=== PATIENT | male | born 1990 | race Caucasian/White ===

== ENCOUNTER → 2022-09-26 15:53 | Outpatient (BNVA) | payer MEDICAID, SELFPAY | PROVIDERS: Visit Provider Registered Nurse Neonatal Intensive Care | DX: R50.9 Fever, unspecified (principal); B34.9 Viral infection, unspecified | CPT/HCPCS: 87400 ==

== ENCOUNTER → 2024-06-08 14:50 | Outpatient (BNVA) | payer SELFPAY | PROVIDERS: PCP Family Medicine; Visit Provider Internal Medicine | DX: E10.9 Type 1 diabetes mellitus without complications (principal) | CPT/HCPCS: 36415; 80053; 80061; 82044; 83036 ==

== ENCOUNTER → 2024-09-27 11:45 | Outpatient (BNVA) | payer MEDICAID, SELFPAY | PROVIDERS: PCP Family Medicine; Visit Provider Internal Medicine | DX: E10.9 Type 1 diabetes mellitus without complications (principal); E78.2 Mixed hyperlipidemia; J18.9 Pneumonia, unspecified organism | CPT/HCPCS: 36415; 80053; 80061; 82044; 83036; 84681; 86337; 86341 ==

== ENCOUNTER 2024-12-22 16:22 | Outpatient (CLI) | payer SELFPAY ==
[2024-12-22 18:57] LABS: Estmated Average Glucose 252; Hemoglobin A1C 10.4 % (4.0-6.0)
[2024-12-22 19:14] LABS: Creatinine Urine, Random 57 mg/dL (39-259); Microalbum Creatinine Ratio Ur 18 mg/dL (0-20); Microalbumin Random Urine 1 ug/dL (0-20)
[2024-12-22 19:14] LABS: Chol HDL Ratio 2.59 mg/dL (1.0-5.00); Cholesterol 153 mg/dL (0-200); HDL Cholesterol 59 mg/dL (60-100); LDL Cholesterol Calculated 84 mg/dL (50-129); LDL HDL Ratio 1.42 RATIO (0.00-3.22); Triglycerides 50 mg/dL (0-150)
== END 2024-12-22 16:23 | disposition home or self-care (01) ==
PROVIDERS: PCP Family Medicine; Visit Provider Internal Medicine
DX: E10.9 Type 1 diabetes mellitus without complications (principal); E78.2 Mixed hyperlipidemia
CPT/HCPCS: 80061; 82044; 83036

== ENCOUNTER → 2025-04-16 11:40 | Outpatient (BNVA) | payer SELFPAY | PROVIDERS: PCP Family Medicine; Visit Provider Internal Medicine | DX: J18.9 Pneumonia, unspecified organism (principal); E10.9 Type 1 diabetes mellitus without complications; E78.2 Mixed hyperlipidemia | CPT/HCPCS: 36415; 80053; 80061; 82044; 83036 ==